=== PATIENT | male | born 1965 | race Caucasian/White ===

== ENCOUNTER 2018-01-24 02:12 | Emergency (ER) | payer OTHER ==
[2018-01-24 02:15] VITALS: BP 108/89
[2018-01-24] MEDS ORDERED: Diphtheria,Pertussis(Acell),Tetanus Vaccine 0.5 ML Syringe IM ONE (02:38)
[2018-01-24] MEDS ORDERED: Fluorescein 1 MG Ophth Strip EYELF ONE (02:39)
[2018-01-24] MEDS ORDERED: Tetracaine HCl/PF 0.5% 4 ML Bottle EYELF ONE (02:39)
--- NOTE | 2018-01-24 02:41 | EDM.PDOC ---
ED HPI GENERAL MEDICAL PROBLEM - General Chief Complaint: Eye Problems Stated Complaint: EYE PROBLEM Time Seen by Provider: 01/24/18 02:21 Source of Information: Reports: Patient History Limitations: Reports: No Limitations - History of Present Illness INITIAL COMMENTS - FREE TEXT/NARRATIVE: Patient presents with pain to his left eye. States feels like foreign object in eye. He was sitting by the fire and watching fireworks about 2 hours ago, unsure of anything happening at that time. Started to note burning and irritation in his left eye after going home and the discomfort has progressively gotten worse. He states eye is very sensitive and has trouble keeping lid open. No vision change. Onset: Today, Sudden Duration: Hour(s): Location: Reports: Face Quality: Reports: Burning Severity: Moderate Left Eye Pain Score (Numeric/FACES): 8 - Related Data Allergies Allergy/AdvReac Type Severity Reaction Status Date / Time GRAIN DUST Allergy Airway Uncoded 01/24/18 02:16 Tightness Home Meds: Home Meds Aspirin [Ecotrin] 325 mg PO DAILY 11/24/15 [History] Lisinopril 20 mg PO DAILY 11/24/15 [History] Past Medical History Cardiovascular History: Reports: Hypertension Gastrointestinal History: Reports: Hiatal Hernia Musculoskeletal History: Reports: Other (See Below) Other Musculoskeletal History: heel spurs - Past Surgical History HEENT Surgical History: Reports: Tonsillectomy Cardiovascular Surgical History: Reports: None GI Surgical History: Reports: Cholecystectomy Musculoskeletal Surgical History: Reports: Arthroscopic Knee Social & Family History - Tobacco Use Smoking Status *Q: Former Smoker Used Tobacco, but Quit: Yes Month/Year Tobacco Last Used: 02/2017 ED ROS GENERAL - Review of Systems Review Of Systems: See Below Constitutional: Denies: Fever, Chills, Malaise, Weakness, Decreased Appetite HEENT: Reports: Eye Discharge, Eye Pain. Denies: Vision Change Respiratory: Reports: No Symptoms Cardiovascular: Reports: No Symptoms Endocrine: Reports: No Symptoms GI/Abdominal: Reports: No Symptoms : Reports: No Symptoms ED EXAM GENERAL W FULL EYE - Physical Exam Exam: See Below Exam Limited By: No Limitations General Appearance: Alert, WD/WN, Mild Distress Eye Exam: Bilateral Eye: EOMI, PERRL Eyelids: Bilateral: Normal Appearance Conjunctiva & Sclera: Left: Injected Cornea Exam: Left: Corneal Abrasion Extraocular Movements: Bilateral: Intact Pupils: Normal Accommodation Pupillary Size: Bilateral: 4 mm Pupillary Reaction: Bilateral: Brisk ED EYE w/ Add Procedure - Eye Procedure Alcaine Drops Administered: Yes Eye FB Removal: Other (no foreign object noted; small cornea abrasion noted at 12 o'clock) Antibiotic Oinment/Drps Admin: Left Eye Course - Vital Signs Last Recorded V/S: Last Vital Signs Temp 98.6 F 01/24/18 02:12 Pulse 84 01/24/18 02:12 Resp 16 01/24/18 02:12 BP 108/89 01/24/18 02:12 Pulse Ox 98 01/24/18 02:12 - Orders/Labs/Meds Orders: Active Orders 24 hr Category Date Time Status Vaccines to be Administered [RC] PER UNIT ROUTINE Care 01/24/18 02:39 Ordered Dexamethasone/Tobramycin [Tobradex Ophth Susp] Med 01/24/18 02:45 Ordered 2.5 ml EYELF Q4H Medication Orders Tobramycin/Dexamethasone (Tobradex Ophth Susp) 2.5 ml EYELF Q4H JOSE DE JESUS Meds: Medications Generic Name Dose Route Start Last Admin Trade Name Freq PRN Reason Stop Dose Admin Tobramycin/Dexamethasone 2.5 ml 01/24/18 02:45 Tobradex Ophth Susp EYELF Q4H JOSE DE JESUS Discontinued Medications Generic Name Dose Route Start Last Admin Trade Name Freq PRN Reason Stop Dose Admin Diphtheria/Tetanus/Acell Pertussis 0.5 ml 01/24/18 02:38 Adacel IM 01/24/18 02:39 .ONCE ONE Fluorescein Sodium 1 mg 01/24/18 02:39 Ful-Taylor EYELF 01/24/18 02:40 ONETIME ONE Tetracaine HCl 2.5 ml 01/24/18 02:39 Tetracaine 0.5% Steri-Unit Sanjana EYELF 01/24/18 02:40 ASDIRECTED ONE Departure - Departure Time of Disposition: 02:41 Disposition: Home, Self-Care 01 Condition: Good Clinical Impression: Corneal abrasion - Discharge Information Referrals: Nadeem Willard MD [Primary Care Provider] - Forms: ED Department Discharge Additional Instructions: 1. Wear sunglasses for eye protection 2. Tobradex 2 drops to left eye 4 times per day for 7 days 3. Tylenol for discomfort 4. Follow up if any ongoing concerns. - My Orders Last 24 Hours: My Active Orders 01/24/18 02:39 Vaccines to be Administered [RC] PER UNIT ROUTINE 01/24/18 02:45 Dexamethasone/Tobramycin [Tobradex Ophth Susp] 2.5 ml EYELF Q4H - Assessment/Plan Last 24 Hours: My Active Orders 01/24/18 02:39 Vaccines to be Administered [RC] PER UNIT ROUTINE 01/24/18 02:45 Dexamethasone/Tobramycin [Tobradex Ophth Susp] 2.5 ml EYELF Q4H
[2018-01-24] MEDS ORDERED: Dexamethasone/Tobramycin 0.1-0.3% Ophth Susp 2.5 ML Bottle EYELF SCH (02:45)
== END 2018-01-24 02:55 | disposition home or self-care (01) ==
LOC: CC.ED 02:12
DX: S05.02XA Injury of conjunctiva and corneal abrasion without foreign body, left eye, initial encounter (principal); I10 Essential (primary) hypertension; Z91.048 Other nonmedicinal substance allergy status; Z79.82 Long term (current) use of aspirin; Z79.899 Other long term (current) drug therapy; Z23 Encounter for immunization; Z87.891 Personal history of nicotine dependence; X58.XXXA Exposure to other specified factors, initial encounter
CPT/HCPCS: 90471; 90715; 99282; A9270-GY

== ENCOUNTER 2022-11-01 14:31 | Inpatient (IN) | payer BC ==
[2022-11-01] MEDS ORDERED: Ondansetron 4 MG/2 ML SDV IVPUSH PRN (14:42)
[2022-11-01] MEDS ORDERED: Ondansetron 4 MG/2 ML SDV IVPUSH STA (14:43)
[2022-11-01] MEDS ORDERED: Sodium Chloride 0.9% 1,000 ML IV STA (14:48)
[2022-11-01] MEDS ORDERED: Iopamidol 755 Mg/ML 100 ML Bottle IVPUSH ONE (14:59)
[2022-11-01] MEDS ORDERED: Promethazine 25 MG in Sodium Chloride 0.9% 100 ML IV ONE (16:16)
[2022-11-01] MEDS ORDERED: Promethazine 25 MG/ML SDV ONE (16:18)
[2022-11-01] MEDS ORDERED: LORazepam 2 MG/ML Syringe IVPUSH ONE (17:16)
[2022-11-01] MEDS ORDERED: Benzocaine 20% Oral Spray 59.2 ML Canister MUCMEM ONE (17:16)
[2022-11-01] MEDS ORDERED: Ondansetron 4 MG/2 ML SDV IV PRN (18:57)
[2022-11-01] MEDS ORDERED: Temazepam 15 MG Cap PO PRN (18:57)
[2022-11-01] MEDS ORDERED: Acetaminophen 325 MG Tab PO PRN (18:57)
[2022-11-01] MEDS ORDERED: Promethazine 12.5 MG in Sodium Chloride 0.9% 50 ML IV PRN (18:57)
[2022-11-01] MEDS: Lactated Ringers 1,000 ML IV SCH (19:28)
[2022-11-01] MEDS: Morphine 2 MG/ML SYRINGE IVPUSH PRN (21:07)
[2022-11-02] MEDS: Lactated Ringers 1,000 ML IV SCH ×3 (03:44→19:59)
[2022-11-02] MEDS: Morphine 2 MG/ML SYRINGE IVPUSH PRN ×3 (03:57→19:07)
[2022-11-02] MEDS: Docusate Sodium 100 MG Cap PO SCH (08:18)
[2022-11-02] MEDS: Lisinopril 20 MG Tab PO SCH (08:19)
[2022-11-02] MEDS: Aspirin 325 MG Tab.EC PO SCH (08:19)
[2022-11-02] MEDS: Enoxaparin 40 MG/0.4 ML Syringe SUBCUT SCH (11:50)
[2022-11-03] MEDS: Lactated Ringers 1,000 ML IV SCH (03:57)
[2022-11-03] MEDS: Lisinopril 20 MG Tab PO SCH (07:58)
[2022-11-03] MEDS: Aspirin 325 MG Tab.EC PO SCH (07:58)
[2022-11-03] MEDS: Docusate Sodium 100 MG Cap PO SCH (07:58)
[2022-11-03 08:12] VITALS: BP 129/80
[2022-11-03] MEDS: Enoxaparin 40 MG/0.4 ML Syringe SUBCUT SCH (11:36)
[2022-11-03 12:54] VITALS: PULSE 53
== END 2022-11-03 14:51 | disposition home or self-care (01) | DRG 252 ==
LOC: CC.ED 14:31 → UNDOADMIN 17:15 → CC.MS 17:15
PROVIDERS: ADMIT Nurse Practitioner; ATTEND Nurse Practitioner
DX: K91.89 Other postprocedural complications and disorders of digestive system (principal); K56.7 Ileus, unspecified; I10 Essential (primary) hypertension; Z79.899 Other long term (current) drug therapy; Z88.8 Allergy status to other drugs, medicaments and biological substances; Z79.82 Long term (current) use of aspirin; Z98.890 Other specified postprocedural states; Z90.49 Acquired absence of other specified parts of digestive tract
CPT/HCPCS: 36415; 74177; 80048; 80053; 81001; 83690; 83735; 85025; 96365; 96375; 99285-25; A9270-GY; J1650; J2270; J2405; J2550; J3490; J7030; J7120; Q9967

== ENCOUNTER 2024-08-19 10:36 | Emergency (ER) | payer OTHER ==
[2024-08-19 10:58] LABS: BASOPHILS ABSOLUTE AUTO 0.03 10^3/uL (0.00-0.50); BASOPHILS PERCENT AUTO 0.5 % (0-1); EOSINOPHILS ABSOLUTE AUTO 0.01 10^3/uL (0.00-1.50); EOSINOPHILS PERCENT AUTO 0.2 % (0-6); HEMATOCRIT 35.7 % (42.0-52.0); IMMATURE GRAN ABSOLUTE AUTO 0.13 10^3/uL (0.00-0.49); IMMATURE GRAN PERCENT AUTO 2.1 % (0.0-4.9); LYMPHOCYTES PERCENT AUTO 30.4 % (24-44); MEAN CORPUSCULAR HEMOGLOBIN 28.8 pg (27.0-32.0); MEAN CORPUSCULAR HGB CONC 33.6 g/dL (32.0-36.0); MEAN CORPUSCULAR VOLUME 85.8 fL (83.0-97.0); MONOCYTES ABSOLUTE AUTO 0.33 10^3/uL (0.00-1.50); MONOCYTES PERCENT AUTO 5.3 % (0-10); NEUTROPHILS ABSOLUTE AUTO 3.85 x10^3/uL (1.80-8.00); NEUTROPHILS PERCENT AUTO 61.5 % (41-71); PLATELET COUNT,PLT 227 10^3/uL (150-400); RED BLOOD CELL COUNT 4.16 x10^6/uL (4.50-6.00); WHITE BLOOD CELL COUNT,WBC 6.3 10^3/uL (4.0-11.0)
[2024-08-19 11:13] LABS: ALANINE AMINOTRANSFERASE,ALT 66 U/L (12-78); ALKALINE PHOSPHATASE 104 U/L (46-116); ASPARTATE AMNIOTRANSFERASE,AST 52 U/L (15-37); BILIRUBIN TOTAL 0.8 mg/dL (0.0-1.0); BLOOD UREA NITROGEN,BUN 39 mg/dL (7-18); CALCIUM 8.1 mg/dL (8.4-10.1); CARBON DIOXIDE,CO2 25 mmol/L (21-32); CHLORIDE,CL 102 mEq/L (98-106); CREATININE 0.9 mg/dL (0.7-1.3); GLUCOSE RANDOM 300 mg/dL (75-99); MAGNESIUM 1.6 mg/dL (1.8-2.4); POTASSIUM,K 4.3 mEq/L (3.5-5.0); SODIUM,NA 137 mEq/L (136-145)
[2024-08-19 11:14] LABS: C-REACTIVE PROTEIN < 0.50 mg/dL (<=0.50); ESTIMATED GFR 100 mL/min (>=60)
[2024-08-19] MEDS: Sodium Chloride 0.9% 1,000 ML IV ONE (11:18)
[2024-08-19 11:52] VITALS: BP 118/87; PULSE 84
[2024-08-19 12:22] LABS: APPEARANCE,URINE CLEAR (CLEAR); BILIRUBIN,URINE NEGATIVE (NEGATIVE); COLOR,URINE YELLOW (YELLOW); GLUCOSE,URINE 500 mg/dL (NEGATIVE); KETONES,URINE 15 mg/dL (NEGATIVE); LEUKOCYTE ESTERASE,URINE NEGATIVE (NEGATIVE); NITRITE,URINE NEGATIVE (NEGATIVE); OCCULT BLOOD,URINE NEGATIVE (NEGATIVE); PROTEIN,URINE NEGATIVE (NEGATIVE)
== END 2024-08-19 13:10 | disposition home or self-care (01) ==
LOC: CC.ED 10:36
DX: R55 Syncope and collapse (principal); I10 Essential (primary) hypertension; E11.9 Type 2 diabetes mellitus without complications; Z90.49 Acquired absence of other specified parts of digestive tract; Z91.048 Other nonmedicinal substance allergy status; Z79.82 Long term (current) use of aspirin; Z79.4 Long term (current) use of insulin; Z79.84 Long term (current) use of oral hypoglycemic drugs; Z79.899 Other long term (current) drug therapy
CPT/HCPCS: 36415; 70450; 71046; 72125; 80053; 81003; 82947; 83735; 84484; 85025; 86140; 93005; 93010; 96360; 99284; 99285-25; J7030